=== PATIENT | female | born 1975 | race Caucasian/White ===

== ENCOUNTER 2022-04-26 06:30 | Emergency (ER) | payer SELFPAY ==
[~2022-04-26] VITALS: Ht 162.6 cm; Wt 57.6 kg
[2022-04-26 06:42] VITALS: BP 111/73
--- NOTE | 2022-04-26 06:57 | NUR ---
PT AMBULATED TO ER BED 6
[2022-04-26] MEDS ORDERED: LEVO75CA3 PO (07:20)
--- NOTE | 2022-04-26 07:20 | NUR ---
Report recieved from GONZALES Perry for transfer of care.
--- NOTE | 2022-04-26 07:28 | NUR ---
46 y/o female bib self, pt presents to ed with lac to left temporal area in relation to head injury. pt states she was in the shower and fell while pulling on shower curtain. denies syncope or loc. denies n/v/d. last tdap vacc unknown. a&ox4, bulgarian speaking, ambulates with steady gait. pmh: hypothyroid nka
--- NOTE | 2022-04-26 07:29 | NUR ---
Pt report given to VITO. Transfer of care at this time.
--- NOTE | 2022-04-26 07:53 | NUR ---
Patient discharged with v/s stable. Written and verbal after care instructions given. Patient alert, oriented and verbalized understanding of instructions. Ambulatory with steady gait. All questions addressed prior to discharge. ID band removed. Patient advised to follow up with PMD. Rx of Levothyroxine given. Opportunity to ask questions provided and answered.
--- NOTE | 2022-04-26 07:57 | NUR ---
Get [facility]avera in [facility] - 04/26/22 at 0758 by [id number] RESEARCH HYDROLOGIST
--- NOTE | 2022-04-26 07:58 | NUR ---
The patient's care was reviewed and supervised by [facility], RN.
== END 2022-04-26 07:53 | disposition home or self-care (01) ==
LOC: MED 06:30
DX: S01.01XA Laceration without foreign body of scalp, initial encounter (principal); W18.30XA Fall on same level, unspecified, initial encounter; Y93.89 Activity, other specified; Y92.89 Other specified places as the place of occurrence of the external cause; Y99.8 Other external cause status
CPT/HCPCS: 90471; 90715; 99283

== ENCOUNTER 2022-04-30 10:59 | Emergency (ER) | payer SELFPAY ==
[~2022-04-30] VITALS: Ht 154.9 cm; Wt 61.2 kg
[~2022-04-30 10:59] MED LIST: LEVO75CA3 PO
[2022-04-30 11:16] VITALS: BP 124/70
--- NOTE | 2022-04-30 11:21 | NUR ---
PT TO BED 09 AMBULATORY
--- NOTE | 2022-04-30 11:45 | NUR ---
NO NURSING INTERVENTIONS REQUIRED.
--- NOTE | 2022-04-30 11:47 | NUR ---
Patient discharged with v/s stable. Written and verbal after care instructions given and explained. Patient verbalized understanding. Ambulatory with steady gait. All questions addressed prior to discharge. Advised to follow up with PMD.
== END 2022-04-30 11:47 | disposition home or self-care (01) ==
LOC: MED 10:59
DX: S01.01XD Laceration without foreign body of scalp, subsequent encounter (principal); E03.9 Hypothyroidism, unspecified; Z48.02 Encounter for removal of sutures; X58.XXXD Exposure to other specified factors, subsequent encounter
CPT/HCPCS: 99282